=== PATIENT | female | born 1975 ===

== ENCOUNTER 2018-09-01 09:49 | Outpatient (CLI) | payer BC | END 2018-09-01 09:50 | disposition home or self-care (01) | LOC: C.MAMMO 09:50 | DX: Z12.39 Encounter for other screening for malignant neoplasm of breast (principal) ==

== ENCOUNTER 2018-09-14 13:05 | Outpatient (CLI) | payer BC | END 2018-09-14 13:06 | disposition home or self-care (01) | LOC: C.MAMMO 13:06 | DX: R92.8 Other abnormal and inconclusive findings on diagnostic imaging of breast (principal) ==